=== PATIENT | female | born 1995 | race Caucasian/White ===

== ENCOUNTER 2016-12-21 13:00 | Emergency (ER) | payer OTHER ==
[2016-12-21] MEDS ORDERED: NO HOME MEDICATION XX (14:12)
[2016-12-21 14:38] LABS: BASO % 0.8 % (0-2); BASO ABSOLUTE COUNT 0.1 tho/cmm (0.0-0.2); EOS % 0.6 % (0-7); EOSINOPHIL ABSOLUTE COUNT 0.1 tho/cmm (0.0-0.7); HCT-HEMATOCRIT 44.7 % (34.0-49.0); HGB-HEMOGLOBIN 15.5 gm/dl (12.0-15.5); IMMATURE GRANULOCYTES ABSOLUTE 0.29 tho/cmm (0-0.03); IMMATURE GRANULOCYTES PERCENT 3.1 % (0-0.3); LYMPH % 24.5 % (20-45); LYMPH ABSOLUTE COUNT 2.3 tho/cmm (0.8-4.5); MCH (MEAN CORPUSCULAR HGB) 31.2 pg (28.0-32.0); MCHC MEAN CORPUSCULAR HGB CONC 34.7 % (32.0-36.0); MCV (MEAN CELL VOLUME) 89.9 fl (82.0-96.0); MEAN PLATELET VOLUME 10.4 cmc (9.4-12.4); MONOCYTE ABSOLUTE COUNT 0.7 tho/cmm (0.0-1.2); NEUTROPHIL ABSOLUTE COUNT 5.9 tho/cmm (1.6-8.0); NEUTROPHIL-AUTOMATED 5.9 tho/cmm (1.6-8.0); PLATELET COUNT 255 tho/cmm (150-450); RED BLOOD COUNT 4.97 mil/cmm (4.00-5.20); RED CELL DISTRIBUTION WIDTH 12.6 % (12.4-16.4); WHITE BLOOD COUNT 9.2 tho/cmm (4.0-10.0)
[2016-12-21 14:53] LABS: ALBUMIN 4.2 g/dl (3.5-5.0); ALKALINE PHOSPHATASE 68 U/L (33-138); ALT/SGPT 35 U/L (12-78); ANION GAP 13 mmol/L (0-20); AST/SGOT 23 U/L (10-40); BILIRUBIN,TOTAL 0.5 mg/dl (0-1.5); BLOOD UREA NITROGEN 7 mg/dl (6-24); CALCIUM 9.3 mg/dl (8.5-10.5); CARBON DIOXIDE-VENOUS 24 mmol/L (22-32); CHLORIDE 108 mmol/l (96-110); CREATININE 0.65 mg/dl (0.50-1.10); GLUCOSE 90 mg/dL (70-110); LIPASE 91 U/L (73-393); POTASSIUM 3.8 mmol/L (3.7-5.1); SODIUM 141 mmol/L (135-145); eGFR VALUE FOR BLACK >90 mL/Min
[2016-12-21 15:03] LABS: URINE BILIRUBIN NEGATIVE (NEG); URINE BLOOD SMALL (NEG); URINE GLUCOSE (UA) NEGATIVE (NEG); URINE KETONE NEGATIVE (NEG); URINE LEUKOCYTE ESTERASE POSITIVE (NEG); URINE NITRITE NEGATIVE (NEG); URINE PROTEIN NEGATIVE (NEG)
[2016-12-21 15:07] LABS: URINE APPEARANCE HAZY; URINE COLOR YELLOW
[2016-12-21 15:08] LABS: URINE BACTERIA 1+; URINE EPITHELIAL CELLS 15-20 /[HPF] (0-10); URINE RBC 0 /[HPF] (0-5); URINE WBC 0-3 /[HPF] (0-5)
== END 2016-12-21 16:59 ==
LOC: EDMED 13:00
PROVIDERS: Emergency Medicine
DX: K59.00 Constipation, unspecified (principal); R10.11 Right upper quadrant pain
CPT/HCPCS: J1170; J2405; J7030; Q9967